=== PATIENT | male | born 1995 | race Caucasian/White ===

== ENCOUNTER 2023-02-24 07:02 | Emergency (ER) | payer MEDICAID ==
[~2023-02-24] VITALS: Ht 167.6 cm; Wt 63.0 kg
[2023-02-24 07:17] VITALS: BP 116/75; PULSE 79; RESP 17; TEMP 97.8; O2SAT 99
[2023-02-24 07:48] VITALS: BP 119/76; PULSE 69; RESP 18; O2SAT 99
[2023-02-24] MEDS ORDERED: IBUP-1842 PO (09:01)
== END 2023-02-24 09:06 | disposition home or self-care (01) ==
LOC: MED 07:02
DX: S02.2XXA Fracture of nasal bones, initial encounter for closed fracture (principal); S05.12XA Contusion of eyeball and orbital tissues, left eye, initial encounter; Y04.2XXA Assault by strike against or bumped into by another person, initial encounter; Y93.89 Activity, other specified; Y92.89 Other specified places as the place of occurrence of the external cause; Y99.8 Other external cause status
CPT/HCPCS: 70450; 70486; 72125; 90471; 90715; 99285